=== PATIENT | female | born 1950 | race Hispanic/Latino ===

== ENCOUNTER 2017-09-23 14:54 | Outpatient (CLI) | payer MEDICARE ==
--- NOTE | 2017-09-23 22:59 | XRay Report ---
FINAL REPORT EXAM: XR HIP 2-3V RT HISTORY: RIGHT HIP PAIN COMPARISONS: None. FINDINGS: AP pelvis with AP and lateral views of the right hip Right hip joint is intact. Mild bilateral hip osteoarthrosis. Diffuse mild pelvic enthesopathy. No acute fracture is seen. There are additional degenerative findings involving the lumbosacral spine, pubic symphysis and sacroiliac joints. IMPRESSION: No acute finding. If patient has persistent hip pain, consider MRI for more sensitive and specific evaluation.
== END 2017-09-23 14:55 | disposition home or self-care (01) ==
LOC: SPVIMAG 14:54
PROVIDERS: ATTEND Orthopaedic Surgery Sports Medicine
DX: M16.0 Bilateral primary osteoarthritis of hip (principal); M76.891 Other specified enthesopathies of right lower limb, excluding foot